=== PATIENT | female | born 1950 | race Hispanic/Latino ===

== ENCOUNTER → 2018-11-01 | Outpatient (CLI) | payer MEDICARE | LOC: MAMMO 09:10 | PROVIDERS: ATTEND Family Medicine | DX: Z12.31 Encounter for screening mammogram for malignant neoplasm of breast (principal) | CPT/HCPCS: 77067 ==

== ENCOUNTER 2025-01-09 11:05 | Emergency (ER) | payer OTHER, MEDICARE ==
[~2025-01-09] VITALS: Ht 149.9 cm; Wt 86.2 kg
[2025-01-09] MEDS ORDERED: METFORMIN HCL1000 M1 (11:34)
[2025-01-09] MEDS: ACETAMINOPHEN 325 MG TAB PO ONE (11:46)
[2025-01-09 12:00] VITALS: PULSE 90; RESP 16; TEMP 98.3; O2SAT 94
== END 2025-01-09 12:00 | disposition home or self-care (01) ==
LOC: FSED 11:14
DX: S92.352A Displaced fracture of fifth metatarsal bone, left foot, initial encounter for closed fracture (principal); X58.XXXA Exposure to other specified factors, initial encounter; Y93.89 Activity, other specified; Y92.019 Unspecified place in single-family (private) house as the place of occurrence of the external cause; E11.9 Type 2 diabetes mellitus without complications
CPT/HCPCS: 99284